=== PATIENT | male | born 1950 | race Two or more races ===

== ENCOUNTER → 2017-07-01 | Outpatient (CLI) | payer OTHER | LOC: CFH 10:47 | PROVIDERS: ATTEND Family Medicine | DX: M25.511 Pain in right shoulder (principal) ==

== ENCOUNTER 2019-10-01 22:57 | Emergency (ER) | payer SELFPAY ==
[~2019-10-01] VITALS: Ht 167.6 cm; Wt 87.8 kg
[2019-10-01 23:02] VITALS: BP 132/80
[2019-10-01] MEDS ORDERED: OXYcodone/APAP 5/325MG TABLET ONE (23:25)
--- NOTE | 2019-10-01 23:28 | NUR ---
MEDS ADMIN PER MAR
[2019-10-01] MEDS ORDERED: PLEASE ENTER ALLERGIES MC SCH (23:30)
[2019-10-01] MEDS ORDERED: OXYcodone/APAP 5/325MG TABLET PO ONE (23:30)
[2019-10-01 23:33] LABS: BASOPHILS # (AUTO) 0.07 x10^3/uL (0-0.1); BASOPHILS % (AUTO) 1 % (0-1); EOSINOPHILS # (AUTO) 0.14 x10^3/uL (0-0.4); EOSINOPHILS % (AUTO) 2 % (1-7); LYMPHOCYTES # (AUTO) 2.24 x10^3/uL (1-3.4); LYMPHOCYTES % (AUTO) 29 % (22-44); MD NO; MEAN CORPUSCULAR HEMOGLOBIN 33.7 pg (27.5-34.5); MEAN CORPUSCULAR HGB CONC 34.6 g/dL (33.2-36.2); MEAN CORPUSCULAR VOLUME 97.3 fL (81-97); MONOCYTES # (AUTO) 0.62 x10^3/uL (0.2-0.8); MONOCYTES % (AUTO) 8 % (2-9); NEUTROPHILS # (AUTO) 4.79 x10^3/uL (1.8-6.8); NEUTROPHILS % (AUTO) 61 % (42-75); PLATELET COUNT 204 x10^3/uL (130-400); RED BLOOD COUNT 4.52 x10^6/uL (4.38-5.82); RED CELL DISTRIBUTION WIDTH 12.2 % (9.4-14.8)
[2019-10-01 23:41] LABS: ALBUMIN 3.9 g/dL (3.4-5.0); ANION GAP 9 mmol/L (5-15); CALCIUM 8.6 mg/dL (8.5-10.1); CHLORIDE 108 mmol/L (98-107)
[2019-10-01 23:52] LABS: ALANINE AMINOTRANSFERASE 60 U/L (12-78); ALKALINE PHOSPHATASE 118 U/L (45-117); BILIRUBIN,TOTAL 0.9 mg/dL (0.2-1.0); TOTAL PROTEIN 7.8 g/dL (6.4-8.2)
[2019-10-02] MEDS ORDERED: KETOROLAC 30 MG/1 ML ONE (00:05)
--- NOTE | 2019-10-02 00:08 | NUR ---
MEDS ADMIN PER OCT.
[2019-10-02] MEDS ORDERED: KETOROLAC 30 MG/1 ML IM ONE (00:30)
== END 2019-10-02 01:00 | disposition home or self-care (01) ==
LOC: ED 10-02 00:10
DX: M13.172 Monoarthritis, not elsewhere classified, left ankle and foot (principal); M13.171 Monoarthritis, not elsewhere classified, right ankle and foot; M10.9 Gout, unspecified
CPT/HCPCS: 36415; 80053; 84550; 85025; 96372; 99283; J1885